=== PATIENT | male | born 1980 | race Two or more races ===

== ENCOUNTER 2020-11-23 12:04 | Inpatient (IN) | payer MEDICAID ==
[~2020-11-23] VITALS: Ht 172.7 cm; Wt 145.9 kg
--- NOTE | 2020-11-23 12:25 | NUR ---
PT CARE FIGHT FROM [place], PT VOMITING BRIGHT RED BLOOD, GIVEN 2X UNITS OF PRBCS, OCTEROTIDE GTT WITH OCTEOTIDE BOLUS, DR. LAKHANI AT BEDSIDE FOR EVALUATION, PT ATTACHED TO ALL MONTIORS, VSS, OSCAR. WILL CONTIUNE TO MONITOR.
--- NOTE | 2020-11-23 12:51 | NUR ---
PT ASLEEP, AWAKES BRIEFLY TO ANSWER QUESTIONS, THEN DRIFTS BACK ASLEEP. VSS.
[2020-11-23] MEDS ORDERED: PANTOPRAZOLE 80 MG in SODIUM CHLORIDE 0.9% 50 ML IV ONE (13:30)
--- NOTE | 2020-11-23 13:34 | NUR ---
Break RN: Med sent for from pharmacy.
[2020-11-23] MEDS ORDERED: PANTOPRAZOLE 80 MG in SODIUM CHLORIDE 0.9% 100 ML IV ONE (14:00)
[2020-11-23] MEDS ORDERED: OCTREOTIDE 500 MCG in SODIUM CHLORIDE 0.9% 99 ML IV ONE (14:00)
--- NOTE | 2020-11-23 14:25 | NUR ---
REPORT CALLED TO [facility]
[2020-11-23 14:50] VITALS: BP 128/73
[2020-11-23] MEDS ORDERED: LACTATED RINGERS 1,000 ML IV SCH (15:30)
[2020-11-23] MEDS ORDERED: hydrALAzine 20 MG/ML, 1ML IVPush PRN (15:30)
[2020-11-23] MEDS ORDERED: LABETALOL 5MG/ML, 20ML IVPush PRN (15:30)
[2020-11-23] MEDS ORDERED: ONDANSETRON ODT 4 MG PO PRN (15:30)
[2020-11-23] MEDS ORDERED: OCTREOTIDE 1,250 MCG in SODIUM CHLORIDE 0.9% 247.5 ML IV PRN (15:30)
[2020-11-23 16:28] LABS: INTERNATIONAL NORMALIZED RATIO 1.39 (0.93-1.1); PROTHROMBIN TIME 14.8 Seconds (9.6-11.5)
[2020-11-23 17:52] LABS: ALANINE AMINOTRANSFERASE 33 U/L (12-78); ALBUMIN 2.3 g/dL (3.4-5.0); ANION GAP 5 mmol/L (5-15); CALCIUM 7.1 mg/dL (8.5-10.1); CHLORIDE 111 mmol/L (98-107); CREATININE 0.53 mg/dL (0.7-1.3)
[2020-11-23 17:55] LABS: ALKALINE PHOSPHATASE 123 U/L (45-117); BILIRUBIN,TOTAL 1.6 mg/dL (0.2-1.0); TOTAL PROTEIN 6.3 g/dL (6.4-8.2)
[2020-11-23 20:54] VITALS: BP 110/69
[2020-11-23] MEDS: CEFTRIAXONE PMX 2GM/50ML 50 ML IVPB SCH (21:35)
[2020-11-23 23:55] VITALS: BP 112/70
[2020-11-24 00:23] LABS: AMPHETAMINE SCREEN, URINE Negative (Negative); BENZODIAZEPINE SCREEN, URINE Negative (Negative); CANNABINOID SCREEN, URINE Positive (Negative); COCAINE SCREEN, URINE Negative (Negative); METHADONE SCREEN, URINE Negative (Negative); OPIATE SCREEN, URINE Negative (Negative)
[2020-11-24 00:30] LABS: BARBITURATE SCREEN, URINE Negative (Negative)
[2020-11-24 01:32] VITALS: BP 119/62
[2020-11-24 01:50] VITALS: BP 126/65
[2020-11-24 03:30] VITALS: BP 111/55
[2020-11-24] MEDS: PANTOPRAZOLE 80 MG in SODIUM CHLORIDE 0.9% 100 ML IV SCH ×3 (03:51→23:47)
[2020-11-24 04:29] VITALS: BP 111/55
[2020-11-24] MEDS: ONDANSETRON 2MG/ML, 2ML IVPush PRN ×2 (04:29→16:22)
[2020-11-24 04:32] LABS: ALBUMIN 2.2 g/dL (3.4-5.0); ANION GAP 4 mmol/L (5-15); BASOPHILS % (AUTO) 2 % (0-1); CALCIUM 7.2 mg/dL (8.5-10.1); CHLORIDE 107 mmol/L (98-107); EOSINOPHILS % (AUTO) 3 % (1-7); LYMPHOCYTES % (AUTO) 20 % (22-44); MEAN CORPUSCULAR HEMOGLOBIN 28.1 pg (27.5-34.5); MEAN CORPUSCULAR HGB CONC 32.7 g/dL (33.2-36.2); MEAN PLATELET VOLUME 8.4 fL (7.4-10.4); MONOCYTES % (AUTO) 12 % (2-9); NEUTROPHILS % (AUTO) 63 % (42-75); PLATELET COUNT 74 x10^3/uL (130-400); RED BLOOD COUNT 2.78 x10^6/uL (4.38-5.82); RED CELL DISTRIBUTION WIDTH 17.6 % (9.4-14.8)
[2020-11-24 04:34] LABS: MD NO
[2020-11-24 04:36] LABS: ALANINE AMINOTRANSFERASE 31 U/L (12-78); ALKALINE PHOSPHATASE 114 U/L (45-117); BILIRUBIN,TOTAL 1.8 mg/dL (0.2-1.0); TOTAL PROTEIN 6.1 g/dL (6.4-8.2)
[2020-11-24] MEDS: DIAZEPAM 5 MG/ML, 2ML IV SCH ×5 (08:52→23:47)
[2020-11-24] MEDS: MAGNESIUM SULFATE 1 GM, THIAMINE 200 MG, FOLIC ACID 1 MG in SODIUM CHLORIDE 0.9% 1,000 ML IV SCH (09:02)
[2020-11-24] MEDS: PHYTONADIONE 10 MG/ML, 1ML SQ SCH (09:08)
[2020-11-24] MEDS ORDERED: PROPOFOL 10 MG/ML, 50ML ONE (11:50)
[2020-11-24] MEDS ORDERED: EPINEPHRINE SYRINGE 0.1 MG/ML, 10ML ONE (12:29)
[2020-11-24] MEDS ORDERED: TRIAMCINOLONE CRM 0.5%, 15GM TP PRN (16:30)
[2020-11-24] MEDS: CEFTRIAXONE PMX 2GM/50ML 50 ML IVPB SCH (20:59)
[2020-11-25] MEDS: DIAZEPAM 5 MG/ML, 2ML IV SCH ×6 (03:25→23:00)
[2020-11-25 04:35] LABS: BASOPHILS % (AUTO) 1 % (0-1); EOSINOPHILS % (AUTO) 5 % (1-7); LYMPHOCYTES % (AUTO) 23 % (22-44); MEAN CORPUSCULAR HGB CONC 32.4 g/dL (33.2-36.2); MEAN PLATELET VOLUME 8.9 fL (7.4-10.4); MONOCYTES % (AUTO) 11 % (2-9); NEUTROPHILS % (AUTO) 60 % (42-75); PLATELET COUNT 63 x10^3/uL (130-400); RED CELL DISTRIBUTION WIDTH 17.6 % (9.4-14.8)
[2020-11-25 04:36] LABS: MD NO
[2020-11-25 04:54] LABS: ALBUMIN 2.3 g/dL (3.4-5.0); CALCIUM 7.4 mg/dL (8.5-10.1); CHLORIDE 104 mmol/L (98-107)
[2020-11-25 04:59] LABS: ALANINE AMINOTRANSFERASE 28 U/L (12-78); ALKALINE PHOSPHATASE 113 U/L (45-117); ANION GAP 3 mmol/L (5-15); CREATININE 0.54 mg/dL (0.7-1.3); TOTAL PROTEIN 6.3 g/dL (6.4-8.2)
[2020-11-25] MEDS: PANTOPRAZOLE 40 MG IV IVPush SCH ×2 (08:00→21:18)
[2020-11-25] MEDS: PHYTONADIONE 10 MG/ML, 1ML SQ SCH (08:46)
[2020-11-25] MEDS: LACTULOSE 20 GM/30 ML UDC PO SCH (08:46)
[2020-11-25] MEDS: SPIRONOLACTONE 50 MG TABLET PO SCH ×2 (08:57→21:19)
[2020-11-25] MEDS: MAGNESIUM SULFATE 1 GM, THIAMINE 200 MG, FOLIC ACID 1 MG in SODIUM CHLORIDE 0.9% 1,000 ML IV SCH (09:22)
[2020-11-25 13:01] VITALS: BP 154/93
[2020-11-25 20:31] VITALS: BP 145/82
[2020-11-25] MEDS: CEFTRIAXONE PMX 2GM/50ML 50 ML IVPB SCH (21:43)
[2020-11-26 00:53] VITALS: BP 159/90
[2020-11-26] MEDS: DIAZEPAM 5 MG/ML, 2ML IV SCH ×3 (03:51→11:00)
[2020-11-26 05:11] LABS: BASOPHILS % (AUTO) 1 % (0-1); EOSINOPHILS % (AUTO) 5 % (1-7); LYMPHOCYTES % (AUTO) 18 % (22-44); MEAN CORPUSCULAR HEMOGLOBIN 28.1 pg (27.5-34.5); MEAN PLATELET VOLUME 7.7 fL (7.4-10.4); MONOCYTES % (AUTO) 10 % (2-9); NEUTROPHILS % (AUTO) 66 % (42-75); PLATELET COUNT 73 x10^3/uL (130-400); RED BLOOD COUNT 2.82 x10^6/uL (4.38-5.82); RED CELL DISTRIBUTION WIDTH 17.8 % (9.4-14.8)
[2020-11-26 05:14] LABS: MD NO
[2020-11-26 05:23] LABS: CALCIUM 7.8 mg/dL (8.5-10.1); CHLORIDE 102 mmol/L (98-107)
[2020-11-26 05:24] LABS: CREATININE 0.47 mg/dL (0.7-1.3)
[2020-11-26 05:33] LABS: ANION GAP 5 mmol/L (5-15)
[2020-11-26] MEDS ORDERED: POTASSIUM CHLORIDE 20 MEQ TAB.ER.PRT PO ONE (06:30)
[2020-11-26] MEDS: PANTOPRAZOLE 40 MG IV IVPush SCH (08:33)
[2020-11-26] MEDS: SPIRONOLACTONE 50 MG TABLET PO SCH (08:33)
[2020-11-26] MEDS: PHYTONADIONE 10 MG/ML, 1ML SQ SCH (08:34)
[2020-11-26] MEDS: LACTULOSE 20 GM/30 ML UDC PO SCH (08:34)
[2020-11-26] MEDS: MAGNESIUM SULFATE 1 GM, THIAMINE 200 MG, FOLIC ACID 1 MG in SODIUM CHLORIDE 0.9% 1,000 ML IV SCH (10:00)
[2020-11-26] MEDS ORDERED: SPIR50TA PO (12:19)
[2020-11-26] MEDS ORDERED: PANT40TA3 PO (12:19)
[2020-11-26] MEDS ORDERED: LACT20SO13 PO (12:19)
== END 2020-11-26 13:14 | disposition home or self-care (01) | DRG 242 ==
LOC: ED 12:52 → EDIP 13:45 → SUATTDRO 13:57 → 4WST 14:45 → CCU 11-24 02:18 → 4WST 11-25 10:52 → DCLOUNGE 11-26 13:04
PROVIDERS: ADMIT Family Medicine; ATTEND Internal Medicine
PROC: 30233N1 Transfusion of Nonautologous Red Blood Cells into Peripheral Vein, Percutaneous Approach (ICD-10-PCS; 2020-11-24)
PROC: 0W3P8ZZ Control Bleeding in Gastrointestinal Tract, Via Natural or Artificial Opening Endoscopic (ICD-10-PCS; principal; 2020-11-24 12:15)
DX: K22.6 Gastro-esophageal laceration-hemorrhage syndrome (principal); R57.8 Other shock; F10.131 Alcohol abuse with withdrawal delirium; D68.9 Coagulation defect, unspecified; D69.6 Thrombocytopenia, unspecified; E66.01 Morbid (severe) obesity due to excess calories; Z20.822 Contact with and (suspected) exposure to COVID-19; E88.09 Other disorders of plasma-protein metabolism, not elsewhere classified; F12.90 Cannabis use, unspecified, uncomplicated; J45.909 Unspecified asthma, uncomplicated; Y90.9 Presence of alcohol in blood, level not specified; R16.1 Splenomegaly, not elsewhere classified; K70.10 Alcoholic hepatitis without ascites; K80.20 Calculus of gallbladder without cholecystitis without obstruction; D50.0 Iron deficiency anemia secondary to blood loss (chronic); Z68.42 Body mass index [BMI] 45.0-49.9, adult; Z79.899 Other long term (current) drug therapy
CPT/HCPCS: 36415; 76700; 80048; 80053; 80307; 82140; 83690; 83735; 84100; 85014; 85018; 85025; 85610; 86850; 86870; 86900; 86922; 86923; 87081; 87635; 93005; 93970; 96374; 96376; 99285; C8929; G0378; J0696; J2354; J2405; J2704; J3360; J3411; J3430; J3475; Q9957; C9113; J7030; J7050; J7120; P9016